=== PATIENT | female | born 1990 | race African-American/Black ===

== ENCOUNTER 2017-11-08 20:38 | Emergency (ER) | payer OTHER ==
[2017-11-08 21:04] VITALS: BP 145/99; PULSE 64; TEMP 98.1; BMI 33.3
[2017-11-08 23:12] LABS: URINE APPEARANCE SLCLOUDY; URINE BILIRUBIN NEGATIVE (<2.0 mg/dL); URINE BLOOD 2+ (NEGATIVE); URINE COLOR AMBER; URINE GLUCOSE (UA) NEGATIVE (NEGATIVE); URINE KETONE 1+ (NEGATIVE); URINE NITRITE NEGATIVE (NEGATIVE)
[2017-11-08 23:15] LABS: URINE PROTEIN 2+ (NEGATIVE)
[2017-11-08 23:16] LABS: URINE LEUK ESTERASE 2+ (NEGATIVE)
[2017-11-08 23:17] LABS: BASO % 0.3 % (0-2.0); EOS % 0.2 % (0-4.5); HEMATOCRIT 34.6 % (32.4-45.2); HEMOGLOBIN 11.8 GM/dL (10.7-15.3); LYMPH % 33.5 % (8-40); MCH 29.4 pg (25.7-33.7); MEAN CELL VOLUME 86.4 fl (80-96); MEAN PLT VOLUME 7.6 fl (7.5-11.1); MONO % 5.9 % (3.8-10.2); NEUT % 60.1 % (42.8-82.8); PLATELET COUNT 406 K/MM3 (134-434); RDW 15.9 % (11.6-15.6); WHITE BLOOD COUNT 11.4 K/mm3 (4.0-10.0)
[2017-11-08 23:18] LABS: EPI CELLS MODERATE /HPF (FEW); URINE MUCUS MANY
--- NOTE | 2017-11-08 23:41 | PDOC ---
History of Present Illness - General History Source: Patient Exam Limitations: No Limitations - History of Present Illness Travel History: No Initial Comments: 11/09/17 02:15 Best Contact: Pmhx: N/A Pshx: 04/2017:"bladder absces" 09/04/2016: C section Allergies:NKDA LMP: 10/27/2017 27-year-old female presents to the emergency department complaining of scant vaginal bleed with pelvic cramping since approximately 1900 hrs. this evening. Pain is described as 3/10 nonradiating intermittent pelvic cramping without fever, chills, nausea/vomiting, chest pain, shortness of breath, flank pains, urinary symptoms: Frequency/urgency/hesitancy, hematuria. There are no alleviating factors but the pain is exacerbated on touch. Patient denies history of similar symptoms. Patient denies any other complaints. <Michelle Bowers - Last Filed: 11/09/17 02:15> <Elmer Dey - Last Filed: 11/11/17 09:30> - General Chief Complaint: Pain Stated Complaint: PAIN Time Seen by Provider: 11/08/17 23:00 Past History - Reproductive History (#): 3 Para: 1 Cervical CA: No Dysfunctional Uterine Bleeding: No Ectopic : No Endometrial CA: No Polycystic Ovaries: No Therapeutic (s) & number: Yes (2) Tubal Ligation: No Spontaneous : 2 - Immunization History Immunization Up to Date: Yes - Suicide/Smoking/Psychosocial Hx Smoking History: Never smoked Have you smoked in the past 12 months: No Number of Cigarettes Smoked Daily: 3 Information on smoking cessation initiated: No 'Breaking Loose' booklet given: 04/17/15 Hx Alcohol Use: No Drug/Substance Use Hx: No Substance Use Type: Marijuana <Michelle Bowers - Last Filed: 11/09/17 02:15> <Elmer Dey - Last Filed: 11/11/17 09:30> - Past Medical History Allergies/Adverse Reactions: Allergies Allergy/AdvReac Type Severity Reaction Status Date / Time No Known Allergies Allergy Verified 11/09/17 13:01 Home Medications: Ambulatory Orders Sulfamethoxazole/Trimethoprim [Bactrim DS -] 1 tab PO BID #14 tablet 11/09/17 Review of Systems - Review of Systems Able to Perform ROS?: Yes Comments:: 11/09/17 02:17 CONSTITUTIONAL: Absent: fever, chills, diaphoresis, generalized weakness, malaise, loss of appetite HEENT: Absent: rhinorrhea, nasal congestion, throat pain, throat swelling, difficulty swallowing, mouth swelling, ear pain, eye pain, visual Changes CARDIOVASCULAR: Absent: chest pain, loss of consciousness, palpitations, irregular heart rate, peripheral edema RESPIRATORY: Absent: cough, shortness of breath, dyspnea with exertion, orthopnea, wheezing, stridor, hemoptysis GASTROINTESTINAL: +pelvic cramps with scant vaginal bleed Absent: abdominal pain, abdominal distension, nausea, vomiting, diarrhea, constipation, melena, hematochezia GENITOURINARY: Absent: dysuria, frequency, urgency, hesitancy, hematuria, flank pain, genital pain MUSCULOSKELETAL: Absent: myalgia, arthralgia, joint swelling SKIN: Absent: rash, itching, pallor HEMATOLOGIC/IMMUNOLOGIC: Absent: easy bleeding, easy bruising, lymphadenopathy, frequent infections Is the patient limited Montenegrin proficient: No <Michelle Bowers - Last Filed: 11/09/17 02:15> *Physical Exam - Vital Signs Last Vital Signs Temp Pulse Resp BP Pulse Ox 98.1 F 64 18 145/99 99 11/08/17 20:59 11/08/17 20:59 11/08/17 20:59 11/08/17 20:59 11/08/17 20:59 - Physical Exam Comments: 11/09/17 02:18 GENERAL: Well developed, well nourished. Awake and alert. No acute distress. HEENT: Normocephalic, atraumatic. PERRLA, EOMI. No conjunctival pallor. Sclera are non- icteric. Moist mucous membranes. Oropharynx is clear. NECK: Supple. Full ROM. No JVD. Carotid pulses 2+ and symmetric, without bruits. No thyromegaly. No lymphadenopathy. CARDIOVASCULAR: Regular rate and rhythm. No murmurs, rubs, or gallops. Distal pulses are 2+ and symmetric. PULMONARY: No evidence of respiratory distress. Lungs clear to auscultation bilaterally. No wheezing, rales or rhonchi. ABDOMINAL: Soft. Non-tender. Non-distended. No rebound or guarding. No organomegaly. Normoactive bowel sounds. MUSCULOSKELETAL Normal range of motion at all joints. No bony deformities or tenderness. No CVA tenderness. EXTREMITIES: No cyanosis. No clubbing. No edema. No calf tenderness. SKIN: Warm and dry. Normal capillary refill. No rashes. No jaundice. <Michelle Bowers - Last Filed: 11/09/17 02:15> - Vital Signs Last Vital Signs Temp Pulse Resp BP Pulse Ox 98.1 F 64 18 145/99 99 11/08/17 20:59 11/08/17 20:59 11/08/17 20:59 11/08/17 20:59 11/08/17 20:59 <Elmer Dey - Last Filed: 11/11/17 09:30> ED Treatment Course - LABORATORY CBC & Chemistry Diagram: 11/08/17 22:37 11/08/17 22:37 - ADDITIONAL ORDERS Additional order review: Laboratory Results 11/08/17 23:00 Urine Color Penny Urine Appearance Slcloudy Urine pH 5.0 Ur Specific [place] 1.035 Urine Protein 2+ H Urine Glucose (UA) Negative Urine Ketones 1+ H Urine Blood 2+ H Urine Nitrite Negative Urine Bilirubin Negative Urine Urobilinogen 2.0 H Ur Leukocyte Esterase 2+ H D Urine WBC (Auto) 20 Urine RBC (Auto) 5 Ur Epithelial Cells Moderate Urine Mucus Many 11/08/17 22:37 RBC 4.00 MCV 86.4 MCHC 34.0 RDW 15.9 H D MPV 7.6 Neutrophils % 60.1 D Lymphocytes % 33.5 D Monocytes % 5.9 Eosinophils % 0.2 Basophils % 0.3 <Michelle Bowers - Last Filed: 11/09/17 02:15> - LABORATORY CBC & Chemistry Diagram: 11/08/17 22:37 11/08/17 22:37 - ADDITIONAL ORDERS Additional order review: 11/08/17 22:37 RBC 4.00 MCV 86.4 MCHC 34.0 RDW 15.9 H D MPV 7.6 Neutrophils % 60.1 D Lymphocytes % 33.5 D Monocytes % 5.9 Eosinophils % 0.2 Basophils % 0.3 <Elmer Dey - Last Filed: 11/11/17 09:30> Progress Note - Progress Note Progress Note: Patient became loud and boisterous while in the emergency department after being informed that she will have to be removed from fast track room #2 into another room where there are stirrups for a pelvic exam. While the medical claims processor was retrieving the speculum from another room for the examination, patient insists that on standing next to me while I was dictating patient's charts. Patient was asked to either wait in the patient room or the pt sitting area but she refused and did not want to leave the immediate medical staff computer area. Patient was informed by me that she cannot be around the staff desk/computer area due to [employer] rules the patient kept screaming, using profanity and refused to leave the area. Patient was informed the lab results were not back yet but she Stating that she needs to leave the emergency department because she has a 1 -year-old daughter at home with a sales representative publications. Patient was informedif she leaves , it will be AGAINST MEDICAL ADVICE. Patient states she will sign the AGAINST MEDICAL ADVICE form but states she refuses to wait for results in the emergency department. Patient grew more and more agitated after repeated requests for her to wait either in the exam room or in the sitting area outside the range of ear shot from the medical staff computer system. Security had to be called to have the wait by the sitting area. <Michelle Bowers - Last Filed: 11/09/17 02:15> Medical Decision Making - Medical Decision Making The patient was seen and evaluated in conjunction with ARTURO Bowers under my direct supervision, ancillary studies were reviewed. I agree with the plan as outlined by ARTURO Bowers. <Elmer Dey - Last Filed: 11/11/17 09:30> *DC/Admit/Observation/Transfer <Michelle Bowers - Last Filed: 11/09/17 02:15> <Elmer Dey - Last Filed: 11/11/17 09:30> Diagnosis at time of Disposition: discharged - Discharge Dispostion Disposition: HOME Condition at time of disposition: Good - Referrals Referrals: Aliza Garcia MD [Primary Care Provider] - - Patient Instructions - Post Discharge Activity
[2017-11-08 23:46] LABS: ALBUMIN 4.1 g/dl (3.4-5.0); ANION GAP 7 (8-16); BILIRUBIN,TOTAL 0.2 mg/dL (0.2-1.0); BLOOD UREA NITROGEN 15 mg/dL (7-18); CALCIUM 8.8 mg/dL (8.5-10.1); CHLORIDE 110 mmol/L (98-107); CO2 26 mmol/L (21-32); CREATININE 0.8 mg/dL (0.55-1.02); GLUCOSE,RANDOM 78 mg/dL (74-106); POTASSIUM 3.9 mmol/L (3.5-5.1); SGOT/AST 10 U/L (15-37); SGPT/ALT 10 U/L (12-78); SODIUM 143 mmol/L (136-145); TOT PROT 7.4 g/dl (6.4-8.2)
[2017-11-08 23:48] LABS: ALK PHOS 58 U/L (45-117)
--- NOTE | 2017-11-09 08:56 | PDOC ---
Patient Follow-up (Call Back) - Post ED Follow - Up Condition at time of discharge: Good Disposition at time of original discharge: HOME Reason for Call Back: Abnwl. Lab (Patient with positive UA, I have requested for patient to return. There was no culture sent. Patient states that she will attempt to return. SHe denies any fever, minor back pain. I will treat empirically with Bactrim prescription sent.) Signs/Symptoms Improved: No
== END 2017-11-09 01:43 | disposition home or self-care (01) ==
LOC: JERFT 20:38 → JER 20:38 → JERFT 11-09 01:43
DX: N39.0 Urinary tract infection, site not specified (principal)
CPT/HCPCS: 36415; 80053; 81003; 81015; 84702; 85025; 99281-25

== ENCOUNTER 2017-11-09 12:50 | Emergency (ER) | payer OTHER ==
[2017-11-09 13:02] VITALS: BP 120/77; PULSE 62; TEMP 98.2; BMI 33.3
--- NOTE | 2017-11-09 14:06 | PDOC ---
History of Present Illness - General Chief Complaint: Vaginal Sxs Stated Complaint: REVISIT, FOLLOW UP/VAG BLEEDING Time Seen by Provider: 11/09/17 13:16 History Source: Patient Exam Limitations: No Limitations - History of Present Illness Initial Comments: 11/09/17 14:01 Patient is a 27-year-old female, 4 para 2, history of cystocele with repair Dr. Ontiveros patient. She was seen in the emergency department last night for vaginal bleeding, lower back pain labs and urine were drawn and sent, patient left prior to obtaining results. I have called patient back today for urine culture, Past Medical History: Denies. Allergies: No known allergies Medications: None Family History: Non-contributory Social History: Denies smoking, alcohol use, or IVDU Review of Systems GENERAL/CONSTITUTIONAL: No fever or chills. No weakness. No weight change. HEAD, EYES, EARS, NOSE AND THROAT: No change in vision. No ear pain or discharge. No sore throat. CARDIOVASCULAR: No chest pain or shortness of breath. RESPIRATORY: No cough, wheezing, or hemoptysis. GASTROINTESTINAL: No nausea, vomiting, diarrhea or constipation. No rectal bleeding. GENITOURINARY: No dysuria, frequency, or change in urination. MUSCULOSKELETAL: No joint or muscle swelling or pain. No neck or back pain. SKIN AND BREASTS: No rash or easy bruising. NEUROLOGIC: No headache, vertigo, loss of consciousness, or loss of sensation. PSYCHIATRIC: No depression or anxiety. ENDOCRINE: No increased thirst. No abnormal weight change. HEMATOLOGIC/LYMPHATIC: No anemia, easy bleeding, or history of blood clots. ALLERGIC/IMMUNOLOGIC: No hives or skin allergy. No latex allergy. Physical Exam: GENERAL: The patient is awake, alert, and fully oriented, in no acute distress. EYES: Pupils equal, round and reactive to light, extraocular movements intact, sclera anicteric, conjunctiva clear. ENT: Ears normal, nares patent, oropharynx clear without exudates. Moist mucous membranes. No uvula deviation NECK: Normal range of motion, supple without lymphadenopathy, JVD, or masses. LUNGS: Breath sounds equal, clear to auscultation bilaterally. No wheezes, and no crackles. HEART: Regular rate and rhythm, normal S1 and S2 without murmur, rub or gallop. ABDOMEN: Soft, nontender, normoactive bowel sounds. No guarding, no rebound. No masses. No bruising or abrasions MUSCULOSKELETAL: Normal range of motion, no edema. No clubbing or cyanosis. No cords, erythema, or tenderness. No CVA Tenderness with fist outpatient. NEUROLOGICAL: Cranial nerves II through XII grossly intact. Normal speech, normal gait. SKIN: Warm, Dry, normal turgor, no rashes or lesions noted. Past History - Past Medical History Allergies/Adverse Reactions: Allergies Allergy/AdvReac Type Severity Reaction Status Date / Time No Known Allergies Allergy Verified 11/09/17 13:01 Home Medications: Ambulatory Orders Sulfamethoxazole/Trimethoprim [Bactrim DS -] 1 tab PO BID #14 tablet 11/09/17 COPD: No - Surgical History Abdominal Surgery: (BLADDER ABSCESS) - Reproductive History (#): 3 Para: 1 Cervical CA: No Dysfunctional Uterine Bleeding: No Ectopic : No Endometrial CA: No Polycystic Ovaries: No Therapeutic (s) & number: Yes (2) Tubal Ligation: No Spontaneous : 2 - Immunization History Immunization Up to Date: Yes - Suicide/Smoking/Psychosocial Hx Smoking History: Never smoked Have you smoked in the past 12 months: No Number of Cigarettes Smoked Daily: 3 Information on smoking cessation initiated: No 'Breaking Loose' booklet given: 11/09/17 Hx Alcohol Use: No Drug/Substance Use Hx: No Substance Use Type: None, Marijuana *Physical Exam - Vital Signs Last Vital Signs Temp Pulse Resp BP Pulse Ox 98.2 F 62 18 120/77 100 11/09/17 12:59 11/09/17 12:59 11/09/17 12:59 11/09/17 12:59 11/09/17 12:59 ED Treatment Course - RADIOLOGY Radiology Studies Ordered: Category Date Time Status ABDOMEN & PELVIS CT W/O CONTR [CT] Stat CT Scan 11/09/17 14:00 Ordered Medical Decision Making - Medical Decision Making 11/09/17 14:02 A/P: Patient here with vaginal bleeding, history of cystocele repair spoke to Dr. Quintero and who requested for patient have CT scan of abdomen and pelvis. Labs reviewed, remarkable only for UTI, with hematuria, white blood cell count is unremarkable, no evidence of infection. 11/09/17 14:06 Laboratory Tests 07/08/11 07/21/14 07/21/14 12:05 20:20 20:20 WBC RBC Hgb Hct MCV MCH MCHC RDW Plt Count MPV Neutrophils % Lymphocytes % Monocytes % Eosinophils % Basophils % Sodium Potassium Chloride Carbon Dioxide Anion Gap BUN Creatinine Creat Clearance w eGFR Random Glucose Direct Bilirubin < 0.1 Calcium Total Bilirubin AST ALT Alkaline Phosphatase Total Protein Albumin Total Amylase 42 Lipase Beta HCG, Quant Urine Color Urine Appearance Urine pH Ur Specific [place] Urine Protein Urine Glucose (UA) Urine Ketones Urine Blood Urine Nitrite Urine Bilirubin Urine Urobilinogen Ur Leukocyte Esterase Urine RBC Urine WBC Urine WBC (Auto) Urine RBC (Auto) Ur Epithelial Cells Urine Bacteria Hyaline Casts 3 Urine Mucus 07/29/15 07/06/16 11/08/17 16:10 02:00 22:37 WBC 11.4 H RBC 4.00 Hgb 11.8 Hct 34.6 MCV 86.4 MCH 29.4 MCHC 34.0 RDW 15.9 H D Plt Count 406 D MPV 7.6 Neutrophils % 60.1 D Lymphocytes % 33.5 D Monocytes % 5.9 Eosinophils % 0.2 Basophils % 0.3 Sodium Potassium Chloride Carbon Dioxide Anion Gap BUN Creatinine Creat Clearance w eGFR Random Glucose Direct Bilirubin Calcium Total Bilirubin AST ALT Alkaline Phosphatase Total Protein Albumin Total Amylase Lipase 89 Beta HCG, Quant Urine Color Urine Appearance Urine pH Ur Specific [place] Urine Protein Urine Glucose (UA) Urine Ketones Urine Blood Urine Nitrite Urine Bilirubin Urine Urobilinogen Ur Leukocyte Esterase Urine RBC 1 Urine WBC 5 Urine WBC (Auto) Urine RBC (Auto) Ur Epithelial Cells Urine Bacteria Few Hyaline Casts Urine Mucus 11/08/17 11/08/17 22:37 23:00 WBC RBC Hgb Hct MCV MCH MCHC RDW Plt Count MPV Neutrophils % Lymphocytes % Monocytes % Eosinophils % Basophils % Sodium 143 Potassium 3.9 Chloride 110 H Carbon Dioxide 26 Anion Gap 7 L BUN 15 Creatinine 0.8 Creat Clearance w eGFR > 60 Random Glucose 78 Direct Bilirubin Calcium 8.8 Total Bilirubin 0.2 D AST 10 L ALT 10 L Alkaline Phosphatase 58 Total Protein 7.4 Albumin 4.1 Total Amylase Lipase Beta HCG, Quant < 1.0 Urine Color Penny Urine Appearance Slcloudy Urine pH 5.0 Ur Specific [place] 1.035 Urine Protein 2+ H Urine Glucose (UA) Negative Urine Ketones 1+ H Urine Blood 2+ H Urine Nitrite Negative Urine Bilirubin Negative Urine Urobilinogen 2.0 H Ur Leukocyte Esterase 2+ H D Urine RBC Urine WBC Urine WBC (Auto) 20 Urine RBC (Auto) 5 Ur Epithelial Cells Moderate Urine Bacteria Hyaline Casts Urine Mucus Many 11/09/17 19:51 CT scan is negative for acute pathology, will DC patient on Bactrim to follow- up with urology. Patient was reassessed and denies pain upon discharge. I discussed the physical exam findings, ancillary test results and final diagnoses with the patient. I answered all of the patient's questions. The patient was satisfied with the care received and felt comfortable with the discharge plan and treatment plan. The patient will call tomorrow to arrange follow-up and will return to the Emergency Department with any new, persistent or worsening symptoms. *DC/Admit/Observation/Transfer Diagnosis at time of Disposition: Urinary tract infection Qualifiers: Urinary tract infection type: site unspecified Hematuria presence: with hematuria Qualified Code(s): N39.0 - Urinary tract infection, site not specified - Discharge Dispostion Disposition: HOME Condition at time of disposition: Stable Admit: No - Prescriptions Prescriptions: Sulfamethoxazole/Trimethoprim [Bactrim DS -] 1 tab PO BID #14 tablet - Referrals Referrals: Shirin Garcia MD [Non Staff, Medical] - Tino Osorio MD [Staff Physician] - - Patient Instructions Printed Discharge Instructions: DI for Urinary Tract Infection (UTI) Additional Instructions: Make sure to increase fluid intake, Motrin for pain Please make an appointment to follow-up with urology Increased bleeding, return to ER - Post Discharge Activity Forms/Work/School Notes: Back to Work
== END 2017-11-09 16:50 | disposition home or self-care (01) ==
LOC: JERFT 12:50
DX: N39.0 Urinary tract infection, site not specified (principal); R31.9 Hematuria, unspecified
CPT/HCPCS: 36415; 74176-TC; 87086; 87491; 87591; 99281-25

== ENCOUNTER 2019-04-03 09:15 | Emergency (ER) | payer SELFPAY ==
[2019-04-03 09:35] VITALS: BP 117/70; PULSE 95; TEMP 98.6; BMI 29.1
[2019-04-03] MEDS ORDERED: ACETAMINOPHEN 650 MG/20.3 ML ORAL SOLUTION (CUPS) PO ONE (09:54)
[2019-04-03 10:21] LABS: BASO % 0.8 % (0-2.0); EOS % 0.2 % (0-4.5); HEMATOCRIT 36.6 % (32.4-45.2); HEMOGLOBIN 12.3 GM/dL (10.7-15.3); LYMPH % 29.9 % (8-40); MCH 30.3 pg (25.7-33.7); MCHC 33.5 g/dl (32.0-36.0); MEAN CELL VOLUME 90.2 fl (80-96); MONO % 5.3 % (3.8-10.2); NEUT % 63.8 % (42.8-82.8); PLATELET COUNT 402 K/MM3 (134-434); RBC 4.05 M/mm3 (3.60-5.2); RDW 15.1 % (11.6-15.6); WHITE BLOOD COUNT 8.8 K/mm3 (4.0-10.0)
[2019-04-03 10:23] LABS: EPI CELLS 4.5 /HPF (0-5/HPF); HYALINE CASTS 4 /lpf (0-8); PH,URINE 5.5 (5.0-8.0); URINE APPEARANCE CLOUDY; URINE BACTERIA 60.3 /hpf (NEGATIVE); URINE BILIRUBIN NEGATIVE (NEGATIVE); URINE COLOR DK YELLOW; URINE GLUCOSE (UA) NEGATIVE (NEGATIVE); URINE KETONE TRACE (NEGATIVE); URINE LEUK ESTERASE TRACE (NEGATIVE); URINE NITRITE NEGATIVE (NEGATIVE); URINE PROTEIN TRACE (NEGATIVE); URINE RBC 405 /hpf (0-4); URINE WBC 5 /hpf (0-5)
[2019-04-03 10:53] LABS: ALBUMIN 3.7 g/dl (3.4-5.0); ALK PHOS 43 U/L (45-117); ANION GAP 6 MMOL/L (8-16); BILIRUBIN,TOTAL 0.3 mg/dL (0.2-1); CALCIUM 8.8 mg/dL (8.5-10.1); CHLORIDE 111 mmol/L (98-107); CO2 24 mmol/L (21-32); CREATININE 0.8 mg/dL (0.55-1.3); GLUCOSE,RANDOM 92 mg/dL (74-106); POTASSIUM 3.6 mmol/L (3.5-5.1); SGOT/AST 11 U/L (15-37); SGPT/ALT 12 U/L (13-61); SODIUM 141 mmol/L (136-145); TOT PROT 6.8 g/dl (6.4-8.2)
--- NOTE | 2019-04-03 11:30 | PDOC ---
History of Present Illness - General Chief Complaint: Vaginal Sxs Stated Complaint: VAGINAL BLEEDING Time Seen by Provider: 04/03/19 09:43 History Source: Patient Exam Limitations: No Limitations - History of Present Illness Travel History: No Initial Comments: 04/03/19 11:05 28-year-old female presents to ED with complaints of lower suprapubic cramping for the past 4 days now associated with vaginal bleeding since yesterday. Patient states no passage of large clots difficulty urinating or back pain. Patient also denies nausea or fever. Patient states had a menses on March 17 which lasted an normal duration. Patient denies history of irregular menses or fibroids. Patient states has had ovarian cysts before and states pain has been worse with sexual intercourse and movement area . patient took no medication for the above. 04/03/19 11:56 Timing/Duration: reports: constant Quality: reports: mild Abdominal Pain Onset Location: reports: suprapubic Pain Radiation: reports: no radiation Activities at Onset: reports: none Aggravating Factors: improves with: None Alleviating Factors: improves with: None Past History - Travel Traveled outside of the country in the last 30 days: No Close contact w/someone who was outside of country & ill: No - Past Medical History Allergies/Adverse Reactions: Allergies Allergy/AdvReac Type Severity Reaction Status Date / Time No Known Allergies Allergy Verified 04/03/19 09:30 Home Medications: Ambulatory Orders Sulfamethoxazole/Trimethoprim [Bactrim DS -] 1 tab PO BID #14 tablet 11/09/17 COPD: No - Surgical History Abdominal Surgery: (BLADDER ABSCESS) - Reproductive History (#): 3 Para: 1 Cervical CA: No Dysfunctional Uterine Bleeding: No Ectopic : No Endometrial CA: No Polycystic Ovaries: No Therapeutic (s) & number: Yes (2) Tubal Ligation: No Spontaneous : 2 - Immunization History Immunization Up to Date: Yes - Suicide/Smoking/Psychosocial Hx Smoking History: Current every day smoker Have you smoked in the past 12 months: Yes Number of Cigarettes Smoked Daily: 5 Information on smoking cessation initiated: No 'Breaking Loose' booklet given: 11/09/17 Hx Alcohol Use: No Drug/Substance Use Hx: No Substance Use Type: None, Marijuana Patient Lives Alone: No Lives with/in: spouse/SO Review of Systems - Review of Systems Able to Perform ROS?: No Is the patient limited Gabonese proficient: No Constitutional: No: Symptoms Reported HEENTM: No: Symptoms Reported Respiratory: No: Symptoms reported Cardiac (ROS): No: Symptoms Reported ABD/GI: Yes: Abdominal cramping (mid lower abd pain). No: Vomiting : Yes: Discharge (vag bleeding) Musculoskeletal: No: Symptoms Reported Integumentary: No: Symptoms Reported Neurological: No: Symptoms reported Hematologic/Lymphatic: No: Symptoms Reported *Physical Exam - Vital Signs Last Vital Signs Temp Pulse Resp BP Pulse Ox 98.6 F 95 H 18 117/70 99 04/03/19 09:30 04/03/19 09:30 04/03/19 09:30 04/03/19 09:30 04/03/19 09:30 - Physical Exam General Appearance: Yes: Nourished, Appropriately Dressed. No: Apparent Distress HEENT: negative: Pale Conjunctivae Neck: positive: Supple Respiratory/Chest: positive: Lungs Clear, Normal Breath Sounds. negative: Respiratory Distress, Accessory Muscle Use Cardiovascular: positive: Regular Rhythm, Regular Rate. negative: Murmur Female Pelvic Exam: positive: cervical os closed, adnexal tenderness (left), vaginal bleeding (right red moderate amount) Gastrointestinal/Abdominal: positive: Soft, Tenderness (left suprapubic) Extremity: positive: Normal Capillary Refill Integumentary: positive: Normal Color, Warm, Moist Neurologic: positive: Motor Strength 5/5 (ambulatory) ED Treatment Course - LABORATORY CBC & Chemistry Diagram: 04/03/19 10:01 04/03/19 10:01 - ADDITIONAL ORDERS Additional order review: Laboratory Results 04/03/19 04/03/19 10:01 10:01 Sodium 141 Potassium 3.6 Chloride 111 H Carbon Dioxide 24 Anion Gap 6 L BUN 11.0 Creatinine 0.8 Est GFR (CKD-EPI)AfAm 114.66 Est GFR (CKD-EPI)NonAf 98.93 Random Glucose 92 Calcium 8.8 Total Bilirubin 0.3 AST 11 L ALT 12 L Alkaline Phosphatase 43 L Total Protein 6.8 Albumin 3.7 Beta HCG, Quant < 1.0 Urine Color Dk yellow Urine Appearance Cloudy Urine pH 5.5 Ur Specific [place] 1.025 Urine Protein Trace Urine Glucose (UA) Negative Urine Ketones Trace H Urine Blood 3+ H Urine Nitrite Negative Urine Bilirubin Negative Urine Urobilinogen 1.0 Ur Leukocyte Esterase Trace Urine WBC (Auto) 5 Urine RBC (Auto) 405 Urine Casts (Auto) 4 U Epithel Cells (Auto) 4.5 Urine Bacteria (Auto) 60.3 04/03/19 10:01 RBC 4.05 MCV 90.2 MCHC 33.5 RDW 15.1 MPV 7.0 L Neutrophils % 63.8 Lymphocytes % 29.9 Monocytes % 5.3 Eosinophils % 0.2 Basophils % 0.8 - RADIOLOGY Radiology Studies Ordered: Category Date Time Status TRANSVAGINAL ULTRASOUND US [US] Stat Ultrasound 04/03/19 09:52 Ordered - Medications Given in the ED: ED Medications Discontinued Medications Generic Name Dose Route Start Last Admin Trade Name Freq PRN Reason Stop Dose Admin Acetaminophen 650 mg 04/03/19 09:54 04/03/19 10:10 Tylenol Oral Solution - PO 04/03/19 09:55 650 mg ONCE ONE Administration Medical Decision Making - Medical Decision Making 04/03/19 11:07 Chief complaint: Vaginal bleeding for the past 2 days associated with lower abdominal pain Exam patient with left suprapubic and adnexal tenderness with bright red blood in vaginal vault. Plan: Labs, urine Tylenol and ultrasound ordered 04/03/19 11:58 Laboratory Tests 04/03/19 04/03/19 04/03/19 10:01 10:01 10:01 WBC 8.8 Hgb 12.3 Hct 36.6 Absolute Neuts (auto) 5.6 Sodium 141 Potassium 3.6 Chloride 111 H Carbon Dioxide 24 Anion Gap 6 L BUN 11.0 Creatinine 0.8 Random Glucose 92 Calcium 8.8 Total Bilirubin 0.3 AST 11 L ALT 12 L Alkaline Phosphatase 43 L Beta HCG, Quant < 1.0 Urine Ketones Trace H Urine Blood 3+ H Urine Nitrite Negative Ur Leukocyte Esterase Trace Urine WBC (Auto) 5 04/03/19 12:32 Chest sounds shows a 2.7 left ovarian cysts without intraluminal debris or hemorrhage. A 0.7 x 0.3 cm involuting right ovarian cyst is noted. No evidence of torsion. A small to moderate amount of complex free fluid seen within the right adnexa containing punctate material possibly representing blood. Small cervical Nabothian cyst. Since patient is a current cigarette smoker daily patient will be given a referral to [facility] *DC/Admit/Observation/Transfer Diagnosis at time of Disposition: Ovarian cyst Qualifiers: Laterality: left Qualified Code(s): N83.202 - Unspecified ovarian cyst, left side - Discharge Dispostion Disposition: HOME Condition at time of disposition: Improved - Referrals Referrals: Ernestine Durbin MD [Staff Physician] - - Patient Instructions Printed Discharge Instructions: DI for Ovarian Cyst Additional Instructions: Please follow up with [facility]. Take motrin for pain. Return to ED if you develop worsening pain or heavy vaginal bleeding. - Post Discharge Activity
== END 2019-04-03 12:46 | disposition home or self-care (01) ==
LOC: JER 09:15
DX: N83.202 Unspecified ovarian cyst, left side (principal); N83.201 Unspecified ovarian cyst, right side
CPT/HCPCS: 36415; 76830-TC; 80053; 81003; 84702; 85025; 87086; 99281-25

== ENCOUNTER 2021-03-28 13:30 | Inpatient (IN) | payer OTHER ==
[2021-03-28] MEDS ORDERED: SODIUM CHLORIDE 500 ML IV ONE (14:00)
[2021-03-28] MEDS ORDERED: SODIUM CHLORIDE 1,000 ML IV ONE (14:00)
[2021-03-28 16:10] LABS: BASO % 0.6 % (0-2.0); EOS % 0.2 % (0-4.5); HEMOGLOBIN 9.8 GM/dL (10.7-15.3); LYMPH % 18.3 % (8-40); MCH 30.1 pg (25.7-33.7); MCHC 33.8 g/dl (32.0-36.0); MEAN CELL VOLUME 89.1 fl (80-96); MEAN PLT VOLUME 7.7 fl (7.5-11.1); MONO % 8.3 % (3.8-10.2); NEUT % 72.6 % (42.8-82.8); PLATELET COUNT 326 10^3/uL (134-434); RBC 3.25 M/mm3 (3.60-5.2); RDW 13.3 % (11.6-15.6); WHITE BLOOD COUNT 11.5 K/mm3 (4.0-10.0)
[2021-03-28 16:20] LABS: BLOOD UREA NITROGEN 8.9 mg/dL (7-18); CALCIUM 7.8 mg/dL (8.5-10.1)
[2021-03-28 16:23] LABS: CREATININE 0.7 mg/dL (0.55-1.3)
[2021-03-28 16:30] LABS: INR 1.02 (0.83-1.09); PROTHROMBIN TIME (PATIENT) 12.5 SEC (9.7-13.0)
[2021-03-28 16:33] LABS: ACTIVATED PTT 27.8 SECONDS (25.2-36.5)
[2021-03-28] MEDS ORDERED: CITRIC ACID/SODIUM CITRATE 30 ML UNIT-DOSE CUP PO ONE (17:00)
[2021-03-28] MEDS ORDERED: OXYTOCIN 20 UNITS in 0.9% NS 20 UNIT/1,000 ML INFUS.BAG IV ONE ×2 (17:00→20:41)
[2021-03-28] MEDS ORDERED: ePHEDrine SULFATE 50 MG/1 ML AMPULE ONE (17:03)
[2021-03-28] MEDS ORDERED: PHENYLEPHRINE HCL 10 MG/1 ML SINGLE DOSE VIAL ONE (17:03)
[2021-03-28] MEDS ORDERED: morphine SULFATE/PF 0.5 MG/ML (2cc Syringe - QUVA) ONE (17:03)
[2021-03-28] MEDS ORDERED: PROPOFOL 20 ML ONE (17:04)
[2021-03-28] MEDS ORDERED: KETOROLAC TROMETHAMINE 30 MG/1 ML VIAL ONE (17:07)
[2021-03-28] MEDS ORDERED: ONDANSETRON 4 MG/2 ML VIAL ONE (17:07)
[2021-03-28 17:55] VITALS: BMI 35.7
[2021-03-28] MEDS ORDERED: ELECTROLYTE-148 SOLN 1,000 ML IV SCH (18:45)
[2021-03-28] MEDS ORDERED: ONDANSETRON 4 MG/2 ML VIAL IVPUSH PRN (18:47)
[2021-03-28 19:08] LABS: CORD BASE EXCESS -6.1 mmol/L (0-2); CORD HCO3 20.2 mmHg (20-29); CORD PCO2 42.8 mmHg (30-78); CORD pH 7.292 (7.14-7.44)
[2021-03-28] MEDS ORDERED: SENNOSIDES/DOCUSATE COMBO (SENNA PLUS) TABLET (UD) PO PRN (19:09)
[2021-03-28] MEDS ORDERED: ACETAMINOPHEN 325 MG TABLET (FP) PO PRN (19:09)
[2021-03-28] MEDS ORDERED: METHYLERGONOVINE MALEATE 0.2 MG/1 ML AMP IM PRN (19:09)
[2021-03-28] MEDS ORDERED: BENZOCAINE 28 GM HEMORRHOIDAL OINTMENT TP PRN (19:09)
[2021-03-28] MEDS ORDERED: IBUPROFEN 800 MG/8 ML IJ IVPB PRN (19:09)
[2021-03-28] MEDS ORDERED: BENZOCAINE 20% 57 GM BOTTLE TP PRN (19:09)
[2021-03-28] MEDS ORDERED: oxyCODONE HCL 5 MG TABLET PO PRN (19:09)
[2021-03-28] MEDS ORDERED: WITCH HAZEL 50% (TUCKS) 40 PAD/JAR PAD TP PRN (19:09)
[2021-03-28 19:11] LABS: CORD HCO3 22.5 mmHg (20-29); CORD PCO2 54.4 mmHg (30-78); CORD pH 7.235 (7.14-7.44)
[2021-03-28] MEDS ORDERED: OXYTOCIN 20 UNITS in 0.9% NS 20 UNIT/1,000 ML INFUS.BAG IV SCH (19:15)
[2021-03-28] MEDS ORDERED: ACETAMINOPHEN INJECTION 100 ML IVPB ONE (19:44)
[2021-03-28] MEDS: ACETAMINOPHEN 1000 MG/100 ML VIAL (NON FORMULARY) IVPB SCH (19:45)
[2021-03-28] MEDS ORDERED: IBUPROFEN 800 MG/8 ML IJ IVPB ONE (20:45)
[2021-03-28] MEDS ORDERED: HYDROmorphone *PCA* 10MG/50ML DISP.SYRIN PCA SCH (21:00)
[2021-03-28] MEDS ORDERED: PCA PUMP NR ONE (21:14)
[2021-03-29] MEDS: ACETAMINOPHEN 1000 MG/100 ML VIAL (NON FORMULARY) IVPB SCH (02:40)
[2021-03-29] MEDS: FERROUS SO4 325 MG TABLET (FP) PO SCH ×2 (07:11→16:52)
[2021-03-29 07:24] LABS: BASO % 0.2 % (0-2.0); EOS % 0.7 % (0-4.5); HEMATOCRIT 29.1 % (32.4-45.2); HEMOGLOBIN 9.9 GM/dL (10.7-15.3); LYMPH % 13.5 % (8-40); MCH 30.8 pg (25.7-33.7); MCHC 34.1 g/dl (32.0-36.0); MEAN CELL VOLUME 90.4 fl (80-96); MEAN PLT VOLUME 7.6 fl (7.5-11.1); MONO % 8.7 % (3.8-10.2); NEUT % 76.9 % (42.8-82.8); PLATELET COUNT 290 10^3/uL (134-434); RBC 3.22 M/mm3 (3.60-5.2); RDW 13.3 % (11.6-15.6); WHITE BLOOD COUNT 12.3 K/mm3 (4.0-10.0)
[2021-03-29] MEDS ORDERED: PCA PUMP KEY 1 EACH EACH ONE (09:29)
[2021-03-29] MEDS ORDERED: NIFEdipine E.R. 30 MG TABLET PO ONE (09:45)
[2021-03-29] MEDS: ENOXAPARIN NA (PORCINE) 40 MG/0.4 ML DISP.SYRIN SQ SCH (10:44)
[2021-03-29] MEDS: PRENATAL VITAMINS W/ FOLIC ACID TABLET (FP) PO SCH (10:44)
[2021-03-29] MEDS: diphenhydrAMINE HCL 25 MG CAPSULE (FP) PO PRN ×2 (12:16→22:19)
[2021-03-29] MEDS: IBUPROFEN 600 MG TABLET (FP) PO PRN ×2 (15:13→22:19)
[2021-03-29] MEDS: SIMETHICONE 80 MG TAB.CHEW (FP) PO PRN (15:14)
[2021-03-29] MEDS ORDERED: BISACODYL 10 MG SUPP.RECT RC PRN (19:09)
[2021-03-30] MEDS ORDERED: oxyCODONE HCL 5 MG TABLET ONE (01:21)
[2021-03-30] MEDS: SIMETHICONE 80 MG TAB.CHEW (FP) PO PRN (01:24)
[2021-03-30] MEDS ORDERED: oxyCODONE HCL 5 MG TABLET PO PRN (01:33)
[2021-03-30] MEDS: IBUPROFEN 600 MG TABLET (FP) PO PRN (06:28)
[2021-03-30] MEDS: ENOXAPARIN NA (PORCINE) 40 MG/0.4 ML DISP.SYRIN SQ SCH (09:23)
[2021-03-30] MEDS: FERROUS SO4 325 MG TABLET (FP) PO SCH (09:23)
[2021-03-30] MEDS: PRENATAL VITAMINS W/ FOLIC ACID TABLET (FP) PO SCH (09:24)
[2021-03-30 14:31] VITALS: BP 122/77; PULSE 76; TEMP 98.1
== END 2021-03-30 16:15 | disposition home or self-care (01) | DRG 540 ==
LOC: JDEL 13:30 → JLDR 16:30 → J3W 20:39
PROVIDERS: ADMIT Obstetrics & Gynecology; ATTEND Obstetrics & Gynecology
PROC: 10D00Z1 Extraction of Products of Conception, Low, Open Approach (ICD-10-PCS; principal; 2021-03-28)
DX: O34.211 Maternal care for low transverse scar from previous cesarean delivery (principal); O90.81 Anemia of the puerperium; D64.9 Anemia, unspecified; Z3A.38 38 weeks gestation of pregnancy; Z37.0 Single live birth
CPT/HCPCS: 36415; 36600; 59025; 80048; 82803; 85025; 85610; 85730; 86780; 86850; 86900; 86901; C9803; J0131; U0003; U0005

== ENCOUNTER 2021-04-11 11:16 | Emergency (ER) | payer OTHER ==
[2021-04-11 11:47] VITALS: TEMP 98.4; BMI 37.5
[2021-04-11] MEDS ORDERED: ASPIRIN 81 MG CHEWABLE TABLETS PO ONE (12:40)
[2021-04-11] MEDS ORDERED: ASPIRIN 81 MG CHEWABLE TABLETS ONE (12:47)
[2021-04-11 13:16] LABS: BASO % 1.1 % (0-2.0); EOS % 2.2 % (0-4.5); HEMATOCRIT 28.9 % (32.4-45.2); HEMOGLOBIN 9.9 GM/dL (10.7-15.3); LYMPH % 24.5 % (8-40); MCH 30.9 pg (25.7-33.7); MCHC 34.1 g/dl (32.0-36.0); MEAN CELL VOLUME 90.7 fl (80-96); MONO % 5.7 % (3.8-10.2); NEUT % 66.5 % (42.8-82.8); PLATELET COUNT 410 10^3/uL (134-434); RBC 3.19 M/mm3 (3.60-5.2); RDW 14.3 % (11.6-15.6); WHITE BLOOD COUNT 7.8 K/mm3 (4.0-10.0)
[2021-04-11 13:37] LABS: CHLORIDE 110 mmol/L (98-107); SODIUM 141 mmol/L (136-145)
[2021-04-11 13:41] LABS: ALBUMIN 3.1 g/dl (3.4-5.0); ANION GAP 4 MMOL/L (8-16); BLOOD UREA NITROGEN 14.8 mg/dL (7-18); CALCIUM 8.7 mg/dL (8.5-10.1); CO2 28 mmol/L (21-32); GLUCOSE,RANDOM 73 mg/dL (74-106); MAGNESIUM 2.3 mg/dL (1.8-2.4)
[2021-04-11 13:43] LABS: CREATININE 0.8 mg/dL (0.55-1.3); SGOT/AST 13 U/L (15-37); SGPT/ALT 21 U/L (13-61)
[2021-04-11 13:44] LABS: PH,URINE 7.5 (5.0-8.0); URINE APPEARANCE CLEAR; URINE BILIRUBIN NEGATIVE (NEGATIVE); URINE COLOR YELLOW; URINE GLUCOSE (UA) NEGATIVE (NEGATIVE); URINE KETONE NEGATIVE (NEGATIVE); URINE LEUK ESTERASE NEGATIVE (NEGATIVE); URINE NITRITE NEGATIVE (NEGATIVE); URINE PROTEIN NEGATIVE (NEGATIVE); URINE UROBILINOGEN 0.2 mg/dL (0.2-1.0)
[2021-04-11 13:44] LABS: LDH 227 U/L (84-246)
[2021-04-11 13:45] LABS: BILIRUBIN,TOTAL 0.2 mg/dL (0.2-1); TOT PROT 6.9 g/dl (6.4-8.2)
[2021-04-11 13:46] LABS: ALK PHOS 67 U/L (45-117)
[2021-04-11 13:50] LABS: URIC ACID 5.3 mg/dL (2.6-7.2)
[2021-04-11 14:28] VITALS: BP 141/76; PULSE 51
[2021-04-11] MEDS ORDERED: NIFEdipine E.R. 30 MG TABLET PO ONE (14:48)
[2021-04-11] MEDS ORDERED: NIFEdipine E.R. 30 MG TABLET ONE (14:52)
== END 2021-04-11 15:32 | disposition left against medical advice (07) ==
LOC: JER 11:16
DX: R94.31 Abnormal electrocardiogram [ECG] [EKG] (principal); I10 Essential (primary) hypertension
CPT/HCPCS: 36415; 80053; 81003; 82550; 83615; 83735; 84484; 84550; 85025; 87086; 93005; 93010; 99284-25

== ENCOUNTER 2023-04-17 13:35 | Emergency (ER) | payer OTHER ==
[2023-04-17 13:41] VITALS: BP 129/86; PULSE 63; RESP 20; TEMP 98.1; BMI 31.2
[2023-04-17 14:44] LABS: BASO % 0.8 % (0-2.0); EOS % 0.5 % (0-4.5); HEMATOCRIT 34.6 % (32.4-45.2); HEMOGLOBIN 11.7 GM/dL (10.7-15.3); LYMPH % 35.3 % (8-40); MCH 28.9 pg (25.7-33.7); MEAN CELL VOLUME 84.9 fl (80-96); MEAN PLT VOLUME 6.9 fl (7.5-11.1); MONO % 6.1 % (3.8-10.2); NEUT % 57.3 % (42.8-82.8); PLATELET COUNT 421 10^3/uL (134-434); RBC 4.07 M/mm3 (3.60-5.2); RDW 15.3 % (11.6-15.6); WHITE BLOOD COUNT 9.9 K/mm3 (4.0-10.0)
[2023-04-17 15:06] LABS: POTASSIUM 4.1 mmol/L (3.5-5.1)
[2023-04-17 15:08] LABS: BLOOD UREA NITROGEN 19.8 mg/dL (7-18); CALCIUM 7.9 mg/dL (8.5-10.1)
[2023-04-17 15:09] LABS: ALBUMIN 3.3 g/dl (3.4-5.0)
[2023-04-17 15:11] LABS: CREATININE 0.8 mg/dL (0.55-1.3)
[2023-04-17 15:13] LABS: BILIRUBIN,TOTAL 0.2 mg/dL (0.2-1); TOT PROT 6.6 g/dl (6.4-8.2)
== END 2023-04-17 18:23 | disposition home or self-care (01) ==
LOC: JER 13:35
DX: N93.9 Abnormal uterine and vaginal bleeding, unspecified (principal); M54.50 Low back pain, unspecified
CPT/HCPCS: 36415; 73562-TC-LT-FY; 76830-TC; 80053; 84703; 85025; 87491; 87591; 87661; 99284-25

== ENCOUNTER 2023-05-11 01:41 | Emergency (ER) | payer OTHER ==
[2023-05-11 01:54] VITALS: TEMP 97.7; BMI 30.6
[2023-05-11 02:31] LABS: EPI CELLS 31 /uL (0-25.1); HCG,QUALITATIVE URINE Negative; HYALINE CASTS 0 /uL (0-3.1); PH,URINE 6.5 (5.0-8.0); URINE APPEARANCE CLEAR; URINE BACTERIA 209 /uL (0-1359); URINE BILIRUBIN NEGATIVE (NEGATIVE); URINE COLOR YELLOW; URINE GLUCOSE (UA) NEGATIVE (NEGATIVE); URINE KETONE NEGATIVE (NEGATIVE); URINE LEUK ESTERASE NEGATIVE (NEGATIVE); URINE NITRITE NEGATIVE (NEGATIVE); URINE PROTEIN TRACE (NEGATIVE); URINE RBC 21 /uL (0-23.9); URINE UROBILINOGEN 0.2 mg/dL (0.2-1.0); URINE WBC 10 /uL (0-25.8)
[2023-05-11] MEDS ORDERED: IBUPROFEN 600 MG TABLET (FP) PO ONE ×2 (02:32→02:36)
[2023-05-11 02:48] LABS: BASO % 0.9 % (0-2.0); EOS % 0.5 % (0-4.5); HEMATOCRIT 33.6 % (32.4-45.2); HEMOGLOBIN 11.5 GM/dL (10.7-15.3); LYMPH % 26.8 % (8-40); MCH 28.7 pg (25.7-33.7); MCHC 34.1 g/dl (32.0-36.0); MEAN CELL VOLUME 84.3 fl (80-96); MEAN PLT VOLUME 6.7 fl (7.5-11.1); MONO % 6.7 % (3.8-10.2); NEUT % 65.1 % (42.8-82.8); PLATELET COUNT 405 10^3/uL (134-434); RBC 3.99 M/mm3 (3.60-5.2); RDW 15.3 % (11.6-15.6); WHITE BLOOD COUNT 10.8 K/mm3 (4.0-10.0)
[2023-05-11 03:26] LABS: POTASSIUM 3.5 mmol/L (3.5-5.1)
[2023-05-11 03:29] LABS: CALCIUM 8.4 mg/dL (8.5-10.1)
[2023-05-11 03:30] LABS: ALBUMIN 3.5 g/dl (3.4-5.0); BLOOD UREA NITROGEN 16.2 mg/dL (7-18)
[2023-05-11 03:33] LABS: CREATININE 0.7 mg/dL (0.55-1.3)
[2023-05-11 03:34] LABS: TOT PROT 6.8 g/dl (6.4-8.2)
[2023-05-11 03:35] LABS: BILIRUBIN,TOTAL 0.2 mg/dL (0.2-1)
[2023-05-11 03:56] VITALS: BP 139/79; PULSE 66; RESP 16
== END 2023-05-11 03:56 | disposition home or self-care (01) ==
LOC: JER 01:41
DX: R10.2 Pelvic and perineal pain (principal); R06.02 Shortness of breath
CPT/HCPCS: 36415; 80053; 81003; 84703; 85025; 99283-25

== ENCOUNTER 2023-12-24 17:22 | Inpatient (IN) | payer OTHER ==
[2023-12-24 17:37] VITALS: BMI 32.8
[2023-12-24 19:53] LABS: BASO % 1.3 % (0-2.0); EOS % 0.2 % (0-4.5); HEMATOCRIT 34.9 % (32.4-45.2); HEMOGLOBIN 11.6 GM/dL (10.7-15.3); LYMPH % 30.4 % (8-40); MCH 29.1 pg (25.7-33.7); MCHC 33.3 g/dl (32.0-36.0); MEAN CELL VOLUME 87.4 fl (80-96); MEAN PLT VOLUME 6.7 fl (7.5-11.1); MONO % 6.3 % (3.8-10.2); NEUT % 61.8 % (42.8-82.8); PLATELET COUNT 420 10^3/uL (134-434); RBC 3.99 M/mm3 (3.60-5.2); RDW 15.6 % (11.6-15.6); WHITE BLOOD COUNT 10.1 K/mm3 (4.0-10.0)
[2023-12-24 20:07] LABS: INR 1.09 (0.83-1.09); PROTHROMBIN TIME (PATIENT) 12.3 SEC (9.7-13.0)
[2023-12-24 20:10] LABS: ACTIVATED PTT 34.9 SECONDS (25.2-36.5)
[2023-12-24 20:16] LABS: POTASSIUM 4.3 mmol/L (3.5-5.1)
[2023-12-24 20:18] LABS: CALCIUM 8.9 mg/dL (8.5-10.1)
[2023-12-24 20:19] LABS: ALBUMIN 3.8 g/dl (3.4-5.0)
[2023-12-24 20:22] LABS: CREATININE 0.7 mg/dL (0.55-1.3)
[2023-12-24 20:23] LABS: BILIRUBIN,TOTAL 0.4 mg/dL (0.2-1); TOT PROT 7.4 g/dl (6.4-8.2)
[2023-12-24] MEDS: METHOTREXATE SODIUM/PF 25 MG/ML VIAL IM ONE ×2 (22:39→22:42)
[2023-12-24] MEDS: METHOTREXATE SODIUM/PF 25 MG/ML VIAL IVPUSH ONE (22:43)
[2023-12-24] MEDS: SODIUM CHLORIDE 1,000 ML IV SCH (23:16)
[2023-12-25 02:04] VITALS: RESP 18
[2023-12-25 07:04] LABS: BASO % 1.1 % (0-2.0); EOS % 0.3 % (0-4.5); HEMOGLOBIN 10.9 GM/dL (10.7-15.3); LYMPH % 29.8 % (8-40); MCH 28.8 pg (25.7-33.7); MCHC 33.2 g/dl (32.0-36.0); MEAN CELL VOLUME 86.8 fl (80-96); MEAN PLT VOLUME 6.7 fl (7.5-11.1); MONO % 7.8 % (3.8-10.2); PLATELET COUNT 382 10^3/uL (134-434); RDW 15.3 % (11.6-15.6); WHITE BLOOD COUNT 8.3 K/mm3 (4.0-10.0)
[2023-12-25 07:17] LABS: POTASSIUM 3.7 mmol/L (3.5-5.1)
[2023-12-25 07:20] LABS: CALCIUM 7.9 mg/dL (8.5-10.1)
[2023-12-25 07:21] LABS: ALBUMIN 3.3 g/dl (3.4-5.0); BLOOD UREA NITROGEN 15.3 mg/dL (7-18)
[2023-12-25 07:24] LABS: CREATININE 0.7 mg/dL (0.55-1.3)
[2023-12-25 07:25] LABS: BILIRUBIN,TOTAL 0.4 mg/dL (0.2-1); TOT PROT 6.5 g/dl (6.4-8.2)
[2023-12-26 09:16] LABS: BASO % 0.5 % (0-2.0); EOS % 0.4 % (0-4.5); LYMPH % 32.4 % (8-40); MCH 29.5 pg (25.7-33.7); MCHC 34.3 g/dl (32.0-36.0); MEAN CELL VOLUME 85.9 fl (80-96); MEAN PLT VOLUME 6.8 fl (7.5-11.1); MONO % 7.4 % (3.8-10.2); NEUT % 59.3 % (42.8-82.8); PLATELET COUNT 345 10^3/uL (134-434); RBC 3.72 M/mm3 (3.60-5.2); RDW 14.7 % (11.6-15.6); WHITE BLOOD COUNT 6.9 K/mm3 (4.0-10.0)
[2023-12-26] MEDS: SODIUM CHLORIDE 1,000 ML IV SCH (09:18)
[2023-12-26 09:40] VITALS: BP 119/73; PULSE 64; TEMP 98
[2023-12-26] MEDS: ACETAMINOPHEN 1000 MG/100 ML BAG IVPB PRN (10:14)
== END 2023-12-26 12:20 | disposition home or self-care (01) | DRG 566 ==
LOC: JER 17:22 → JERBED 17:46 → J3W 22:12
PROVIDERS: ADMIT Obstetrics & Gynecology; ATTEND Obstetrics & Gynecology
DX: O00.112 Left tubal pregnancy with intrauterine pregnancy (principal)
CPT/HCPCS: 0241U-QW; 36415; 76817-TC; 80053; 83735; 84702; 84703; 85025; 85610; 85730; 86850; 86900; 86901; 99285-25; J0131; J9260